=== PATIENT | male | born 2000 | race Caucasian/White ===

== ENCOUNTER 2019-11-18 12:08 | Emergency (ER) | payer BC, SELFPAY ==
[2019-11-18 12:19] VITALS: BP 122/65; PULSE 78; RESP 18; TEMP 36.7; O2SAT 99
--- NOTE | 2019-11-18 12:36 | ED.URI ---
HPI - URI/Sore Throat General Chief Complaint: Upper Respiratory Infection Stated Complaint: cough/sore throat Related Data Home Medications Medication Instructions Recorded Confirmed lorazepam 0.5 mg PO DAILY 11/18/19 11/18/19 lorazepam 2 mg PO DAILY 11/18/19 11/18/19 sertraline 50 mg PO DAILY 11/18/19 11/18/19 Allergies Allergy/AdvReac Type Severity Reaction Status Date / Time No Known Allergies Allergy Unverified 01/05/16 23:27 Review of Systems Review of Systems: Narrative: CONSTITUTIONAL: Denies fever, chills, or sweats. EYES: Denies visual changes, redness, or discharge. ENT: Positive rhinorrhea, congestion, sore throat, or otalgia. CARDIOVASCULAR:Denies chest pain, palpitations, or edema. RESPIRATORY: Positive cough or dyspnea. GASTROINTESTINAL: Denies abdominal pain, nausea, vomiting, or diarrhea. GENITOURINARY: Denies dysuria or hematuria. SKIN:[Denies rash or itching. MUSCULOSKELETAL:Denies back pain, joint pain, or myalgia. NEUROLOGIC: Denies headache, numbness, or weakness. PSYCHIATRIC:Denies anxiety or depression PMFSH Social History Social History Smoking status: Never smoker Alcohol intake: never Gender identity (if verbalized by the patient): Male Comments At time as signature, I have reviewed and agree with nursing past medical, social, surgical and family history. Please see nursing chart for further information. There is no relevant family history pertinent to the presenting complaint. Exam Narrative: Exam Narrative: GENERAL:Well-appearing, well-nourished, and in no acute distress. HEAD:Normocephalic, atraumatic. EYES: PERRLA and EOMI. ENT: Nares clear, moderate rhinorrhea or epistaxis. Mucous membranes moist. Pharyngeal erythema with drainage post NECK: Supple. CHEST: Clear to auscultation. No respiratory distress. HEART: Regular rate and rhythm. No murmur heard. Normal peripheral pulses. ABDOMEN: Soft, nontender, nondistended, normal active bowel sounds. EXTREMITIES: Normal range of motion. No edema. SKIN: Warm, dry, no rash. NEURO: No focal deficits. Alert and oriented x3. positive for Strep throat Course Vital Signs Vital signs: Vital Signs Temperature 98.1 F 11/18/19 12:19 Pulse Rate 78 11/18/19 12:19 Respiratory Rate 18 11/18/19 12:19 Blood Pressure 122/65 11/18/19 12:19 Pulse Oximetry 99 11/18/19 12:19 Temperature 98.1 F 11/18/19 12:19 Pulse Rate 78 11/18/19 12:19 Respiratory Rate 18 11/18/19 12:19 Blood Pressure 122/65 11/18/19 12:19 Pulse Oximetry 99 11/18/19 12:19 Discharge Plan Discharge Clinical Impression: Strep sore throat Patient Disposition: Home, Self-Care Condition: Stable Instructions: Antibiotic Form, Strep Throat (ED) Additional Instructions: Gargle with warm salt water at least once each hour to help reduce swelling and make your throat feel better. Use 1 teaspoon of salt mixed in 1 cup of warm water. Take an uihj-lco-hmmiuce pain medication, such as acetaminophen (Tylenol), ibuprofen (Advil, Motrin), or naproxen (Aleve). Try an dcqs-tqy-ffrwiob anesthetic throat spray or throat lozenges, which may help relieve throat pain. Drink plenty of fluids. Fluids may help soothe an irritated throat. Hot fluids, such as tea or soup, may help your throat feel better. Eat soft solids and drink plenty of clear liquids. Flavoured ice pops, ice cream, scrambled eggs, sherbet, and gelatin dessert (such as Jell-O) may also soothe the throat. Get lots of rest. Prescriptions: New amoxicillin 500 mg capsule 500 mg PO Q12H 10 Days Qty: 20 RF: 0 No Action lorazepam 0.5 mg tablet 0.5 mg PO DAILY RF: 0 lorazepam 2 mg tablet 2 mg PO DAILY RF: 0 sertraline 50 mg tablet 50 mg PO DAILY RF: 0 Follow-up/Referrals: Thong Mcginnis MD [Primary Care Provider] - Stand Alone Forms: Work/School Release IP Time of Disposition: 12:44
== END 2019-11-18 12:52 | disposition home or self-care (01) ==
PROVIDERS: Emergency Provider Nurse Practitioner Family; PCP Family Medicine
DX: J02.0 Streptococcal pharyngitis (principal); F41.9 Anxiety disorder, unspecified
CPT/HCPCS: 87804; 87880; 99213; G0463

== ENCOUNTER → 2021-01-29 00:11 | Outpatient (CLI) | payer BC, SELFPAY ==
[2021-01-29 18:48] LABS: SARS-CoV-2 RNA PCR Negative
== END ==
PROVIDERS: PCP Family Medicine; Visit Provider Dentist
DX: Z01.812 Encounter for preprocedural laboratory examination (principal); Z20.822 Contact with and (suspected) exposure to COVID-19
CPT/HCPCS: C9803; U0003; U0005

== ENCOUNTER 2021-02-01 01:44 | Day surgery (SDC) | payer BC, MEDICAID, SELFPAY ==
[2021-01-23 10:15] VITALS: BMI 30.9
--- NOTE | 2021-01-31 12:39 | P.PNAN_ITS ---
Anes - Initial Pre Proc Eval Procedure: Operation Date: 02/01/21 07:30 Proposed Procedures p Extraction Of Three [place] Teeth - Earnest Kingston DMD Date/Time: 01/31/21 12:39 Surgeon: Earnest Kingston DMD Pre Op Diagnosis: Impacted Teeth number one, sixteen, seventeen Patient Data Age: 20 Gender: M Height: 1.85 m Weight: 106.59 kg Allergies Allergy/AdvReac Type Severity Reaction Status Date / Time No Known Allergies Allergy Verified 02/01/21 06:12 Home Medications Medication Instructions Recorded Confirmed Type lorazepam 2.25 mg PO DAILY 11/18/19 02/01/21 History sertraline 50 mg PO DAILY 11/18/19 02/01/21 History Patient hx anesthesia problems: none Family hx anesthesia problems: none [facility] Past Medical History Medical History (Updated 01/31/21 @ 12:40 by Kiran Liang MD) Anxiety Catatonia Dementia Seizure Social History Social History (Updated 03/29/20 @ 08:25 by Celestina Jhaveri) Smoking status: Never smoker Alcohol intake: never Substance use: never Substance use type: does not use Living arrangements: with family Gender identity (if verbalized by the patient): Male Spiritual care concerns: No Anes - Eval Final PreProcedure Day of Procedure 01/31/21 12:39 Patient weight: obese Heart: regular rate and rhythm Lungs: clear to auscultation and normal air movement Airway: Mallampati scale class II Neurological: alert and oriented Last oral intake: >/= 8 hours ASA classification: III Emergent: no Anesthetic plan: proceed Anesthesia type and monitoring: general ETT Informed Consent: The patient's anesthetic plan and its attendant risks and benefits were discussed with the patient/family/POA. Questions were solicited and answers provided to the satisfaction of the patient/family/POA.
[2021-02-01] VITALS (8 sets, daily range): BP systolic 123–134; BP diastolic 64–82; PULSE 67–100; RESP 6–18; TEMP 35.9–36.1; O2SAT 93–100
[2021-02-01] MEDS: LACTATED RINGERS 1,000 ML 30 ML IV CONT (06:23)
--- NOTE | 2021-02-01 07:23 | PM.IMHP ---
H&P: HPI History of Present Illness Date/Time: 02/01/21 07:23 referred for impacted teeth Chief Complaint: impacted teeth PMFSH Past Medical History Medical History (Updated 02/01/21 @ 07:24 by Earnest Kingston DMD) Anxiety Catatonia Dementia Seizure Social History Social History (Updated 03/29/20 @ 08:25 by Celestina Jhaveri) Smoking status: Never smoker Alcohol intake: never Substance use: never Substance use type: does not use Living arrangements: with family Gender identity (if verbalized by the patient): Male Spiritual care concerns: No Meds Home Medications and Allergies Home Medications Medication Instructions Recorded Confirmed Type lorazepam 2.25 mg PO DAILY 11/18/19 02/01/21 History sertraline 50 mg PO DAILY 11/18/19 02/01/21 History Allergies Allergy/AdvReac Type Severity Reaction Status Date / Time No Known Allergies Allergy Verified 02/01/21 06:12 Vital Signs Vital Signs - 24 hr 02/01/21 06:04 Temperature 35.9 C L Pulse Rate 67 Respiratory Rate 18 Blood Pressure 132/74 Pulse Oximetry 100 Assessment and Plan Assessment and plan (1) Non-restorable tooth: Code(s): K08.89 - Other specified disorders of teeth and supporting structures Status: Acute Assessment and Plan: impacted, carious #1,16,17. removal of 1,16,17
--- NOTE | 2021-02-01 07:26 | WPDHPUPDATE1 ---
History and Physical Update Update Date/Time: 02/01/21 07:26 History and Physical has been reviewed, including an updated exam of the patient. There are NO changes in the patient's condition. Risks, benefits, and alternatives have been discussed and questions answered. Patient agrees to proceed with procedure.
[2021-02-01] MEDS: LIDOCAINE 2%-EPI (FOR DENTAL BLOCK) 1.7 ML CARTRIDGE 4 ML INFILTRATE (07:53)
--- NOTE | 2021-02-01 08:00 | PM.PROC ---
Procedure Note - Detailed Date of procedure: 02/01/21 Pre-op diagnosis: Impacted Teeth number one, sixteen, seventeen Surgeon: Earnest Kingston DMD patient encountered in the operating room under the care of the anesthesia service who induced a general anesthetic. Oral cavity was suctioned free of debris and throat pack was placed. Local anesthetic administered. A 15 blade was used to make a 3rd molar incision area of tooth 16. And a full-thickness flap was elevated to the buccal. Tooth 16. Was removed using elevator and forceps technique without complication. Socket curetted free of debris and irrigated with copious amounts of sterile saline. Tooth 1. Was extracted in identical fashion. Attention was turned to the area of 17. Where a 3rd molar incision was made and full-thickness flap was elevated to the buccal. A buccal trough was created in the tooth was sectioned and removed using elevator and forceps technique without complication. Socket curetted free of debris and irrigated copious amounts of sterile saline. Gingiva tissues reapproximated using 4 0 chromic gut suture in interrupted fashion. The oral cavity was suctioned free of debris and throat pack was removed. Complications none. EBL 1cc. 4cc of 2% lidocaine with 1 100,000 epinephrine given. Preoperative diagnosis carious and impacted teeth 1, 16 and 17. Postop diagnosis same
== END 2021-02-01 09:50 | disposition home or self-care (01) ==
PROVIDERS: PCP Family Medicine; Visit Provider Dentist
PROC: (CPT 41899; principal; 2021-02-01 07:30)
DX: K01.1 Impacted teeth (principal); F41.9 Anxiety disorder, unspecified; E66.9 Obesity, unspecified; Z68.30 Body mass index [BMI] 30.0-30.9, adult
CPT/HCPCS: D7240 ×3; A9270; J0330; J1100; J2250; J2405; J2704; J3010; J7120